=== PATIENT | male | born 1945 | race Caucasian/White ===

== ENCOUNTER 2020-08-18 04:57 | Observation (INO) ==
--- NOTE | 2020-07-22 15:04 | PAT Medication Instructions ---
Medication Instructions Date of Service July 22, 2020 Home Medications B-complex with vitamin C [Vitamin B and C] 1 tab PO QPM Vitamin B6 100 mg PO QPM amlodipine 5 mg PO QAM aspirin [Aspir-81] 81 mg PO QAM finasteride 5 mg PO HS gabapentin 600 mg PO TID hydrochlorothiazide 12.5 mg PO BID insulin aspart U-100 [Novolog U-100 Insulin aspart] 30 unit SUBCUT TIDM insulin glargine 52 unit SUBCUT TID losartan 50 mg PO BID multivitamin 1 tab PO QAM naproxen sodium 220 mg PO BID PRN omeprazole 20 mg PO QAM saw palmetto 900 mg PO HS simvastatin 40 mg PO QAM terazosin 10 mg PO BID ASK your surgeon for instructions naproxen sodium 220 mg PO BID PRN STOP taking 2 weeks before surgery saw palmetto 900 mg PO HS DO NOT take the morning of surgery gabapentin 600 mg PO TID hydrochlorothiazide 12.5 mg PO BID insulin aspart U-100 [Novolog U-100 Insulin aspart] 30 unit SUBCUT TIDM losartan 50 mg PO BID multivitamin 1 tab PO QAM Take morning of surgery With a small sip of water, OTHERWISE NOTHING TO EAT OR DRINK AFTER MIDNIGHT: amlodipine 5 mg PO QAM aspirin [Aspir-81] 81 mg PO QAM omeprazole 20 mg PO QAM simvastatin 40 mg PO QAM terazosin 10 mg PO BID Take evening before surgery B-complex with vitamin C [Vitamin B and C] 1 tab PO QPM Vitamin B6 100 mg PO QPM finasteride 5 mg PO HS gabapentin 600 mg PO TID hydrochlorothiazide 12.5 mg PO BID insulin aspart U-100 [Novolog U-100 Insulin aspart] 30 unit SUBCUT TIDM insulin glargine 52 unit SUBCUT TID losartan 50 mg PO BID terazosin 10 mg PO BID Insulin Dependent Diabetic Patients * Test your blood sugar the morning of surgery * If Blood Sugar is GREATER THAN 150, take HALF of your regular dose of: insulin glargine 52 unit SUBCUT TID -- TAKE 26 UNITS * If Blood Sugar is LESS THAN 150, DO NOT TAKE ANY: insulin glargine 52 unit SUBCUT TID Other Notes If you have any questions please call us at [phone] or [phone] or [phone] or [phone]
--- NOTE | 2020-07-23 10:46 | Anesthesiology Consultation ---
Date of Service July 23, 2020 Assessment & Plan (1) Encounter for pre-operative examination: - Per assessment on 07/23: Travel screen- Lives in [facility]/retired. Uses PPE. No known COVID-19 positive contacts or current COVID-19 related symptoms. Patient is having initial vaccine done 07/28 (second vaccine will be after surgery). Surgeon arranging preop COVID testing. Awaiting results. - Cardiology office visit (06/23/20): "Pt remains active.. stable MENDEZ.. Limited by right knee pain and may be having surgery.He has mild chronic edema.. 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 In the presence of this And has chronic RBBB, recommend stopping the beta janet and adding amlodipine 5 mg daily.. If he needs knee s urgery in the near future, he is at acceptable risk on his aspirin since he does remain active (lisseth delatorre) and asymptomatic." Follow-up 1 year recommended. - ASA instructions: patient to remain on ASA perioperatively per surgeon/cardiology Chart Review Chart Review: Acceptable Risk for Surgery (pending surgeon-ordered PCP clearance) and Patient seen in Pre Admission Testing Teaching & Discussion Pre-Anesthesia Teaching/Discussion Notes: Instructed NPO after midnight before surgery,except medications with 15 cc of water. Medication instructions provided according to the PAT guidelines. History Surgery Operation Date: 08/18/20 07:00 Proposed Procedures p Left Total Knee Arthroplasty - Chris Boyce DO Height/Weight Height: 5 ft 8 in Weight: 134.1 kg Allergies Allergy/AdvReac Type Severity Reaction Status Date / Time No Known Allergies Allergy Verified 07/09/20 10:26 Medications Home Medications Medication Instructions Recorded Confirmed Last Taken B-complex with vitamin C [Vitamin 1 tab PO QPM 07/09/20 07/09/20 Unknown B and C] Vitamin B6 100 mg PO QPM 07/09/20 07/09/20 Unknown amlodipine 5 mg PO QAM 07/09/20 07/09/20 Unknown aspirin [Aspir-81] 81 mg PO QAM 07/09/20 07/09/20 Unknown finasteride 5 mg PO HS 07/09/20 07/09/20 Unknown gabapentin 600 mg PO TID 07/09/20 07/09/20 Unknown hydrochlorothiazide 12.5 mg PO BID 07/09/20 07/09/20 Unknown insulin aspart U-100 [Novolog 30 unit SUBCUT TIDM 07/09/20 07/09/20 Unknown U-100 Insulin aspart] insulin glargine 52 unit SUBCUT TID 07/09/20 07/09/20 Unknown losartan 50 mg PO BID 07/09/20 07/09/20 Unknown multivitamin 1 tab PO QAM 07/09/20 07/09/20 Unknown naproxen sodium 220 mg PO BID PRN 07/09/20 07/09/20 Unknown omeprazole 20 mg PO QAM 07/09/20 07/09/20 Unknown saw palmetto 900 mg PO HS 07/09/20 07/09/20 Unknown simvastatin 40 mg PO QAM 07/09/20 07/09/20 Unknown terazosin 10 mg PO BID 07/09/20 07/09/20 Unknown Past Medical History Medical History CAD (coronary artery disease) stents x2 (2013) Diabetes mellitus, type 2 IDDM History of kidney injury remote hx KYM (2016), was on dialysis 1-2 months > resolved/kidney function improved/discharged from nephrology care/PCP now monitoring Hyperlipidemia Hypertension Morbid obesity Myocardial Infarction 2013 Sleep apnea CPAP Exercise / Class Metabolic Activity III < 4 Walking/Shop/Light housework (uses cane) Past Surgical History Surgical History History of cardiac cath stents x2 (2013) History of open reduction and internal fixation (ORIF) procedure left ankle History of open reduction and internal fixation (ORIF) procedure left clavicle History of total knee replacement right Past Anesthesia History No Hx of Anesthesia Complications and No Family Hx of Anesthesia Complications History of PONV No Hx of PONV and No Hx of Motion Sickness Social History Smoking Status: Never smoker tobacco type: smokeless tobacco Do You Dip or Chew Tobacco: Yes (1 can/2 weeks- advsed NPO AM DOS) Hx Alcohol Use: Yes Alcohol type: hard liquor Alcohol Intake Frequency Comment: rare Hx Substance Use: No Review of Systems Patient denies chest pain, shortness of breath, fever, chills, reflux, cough, wheezing, palpitations. Physical Exam Vital Signs VITALS BP 95/60 > 103/64 P 74 TEMP 97.8 SP02 93%RA RESP 16 PHYSICAL Full neck and c-spine range of motion. Full TMJ range of motion. TMD 4 finger breaths Mallampati Score 4 Dentition: partial on upper Lungs: clear throughout to auscultation Cardiac: regular rate and rhythm, no murmurs noted Spine: normal Carotid arteries: negative bruit Extremities: no edema Thick neck Testing Laboratory Results 07/23/20 11:11 07/23/20 11:11 PT 10.4 Seconds (9.0-12.0) 07/23/20 11:11 INR 1.0 (0.9-1.1) 07/23/20 11:11 APTT 31.0 Seconds (21.0-31.0) 07/23/20 11:11 Hemoglobin A1c 7.6 % (4.5-5.6) H 07/23/20 11:11 Urine Color Yellow 07/23/20 Unknown Urine Appearance Clear (Clear) 07/23/20 Unknown Urine pH 6.0 (4.5-7.5) 07/23/20 Unknown Ur Specific [place] 1.020 (1.000-1.030) 07/23/20 Unknown Urine Protein Negative (Negative) 07/23/20 Unknown Urine Glucose (UA) Negative (Negative) 07/23/20 Unknown Urine Ketones Negative (Negative) 07/23/20 Unknown Urine Nitrite Negative (Negative) 07/23/20 Unknown Ur Leukocyte Esterase Negative (Negative) 07/23/20 Unknown Blood Type O Positive 07/23/20 11:11 Antibody Screen NEGATIVE 07/23/20 11:11 07/23/20 GFR 44.1 *Preop testing to be forwarded to PCP for continuity of care* Electrocardiogram Date: 06/23/20 Sinus bradycardia with first-degree AV block at 53 bpm. Right bundle branch block. Possible inferior infarct (Cited on or before 06/11/2019 per branch lending manager review). Chest X-Ray Date: 07/23/20 FINDINGS: Lung volumes are normal. Bilateral pleural densities are symmetric and likely reflect extrapleural fat. There is no consolidation or evidence for pulmonary edema. Opacity at the right cardiophrenic angle is noted. This could reflect epicardial fat. Note is made of moderate cardiomegaly. IMPRESSION: No acute cardiopulmonary findings. Moderate cardiomegaly.
--- NOTE | 2020-07-23 12:06 | XRay Report ---
XR chest Pre-admission PA/Lat CLINICAL HISTORY: Preoperative evaluation. COMPARISON STUDY: No previous studies for comparison. FINDINGS: Lung volumes are normal. Bilateral pleural densities are symmetric and likely reflect extra pleural fat. There is no consolidation or evidence for pulmonary edema. Opacity at the right cardioph renic angle is noted. This could reflect epicardial fat. Note is made of moderate cardiomegaly. IMPRESSION: 1. No acute cardiopulmonary findings. 2. Moderate cardiomegaly. ACT 112: Negative or not required by law. Electronically signed by: Milo Ng M.D. 07/23/2020 12:04 PM
[2020-07-23 12:30] LABS: Basophils # (auto) 0.03 K/uL (0-0.2); Basophils % (auto) 0.3 %; Eosinophils # (auto) 0.08 K/uL (0-0.5); Eosinophils % (auto) 0.8 %; Hematocrit (blood only) 40.3 % (42-52); Hemoglobin 13.5 g/dL (14.0-18.0); Immature Granulocytes # (auto) 0.02 K/uL (0.00-0.02); Immature Granulocytes % (auto) 0.2 %; Lymphocytes % (auto) 14.4 %; Mean Corpuscular Hemoglobin 28.7 pg (25-34); Mean Corpuscular Hgb Conc 33.5 g/dL (32-36); Mean Corpuscular Volume 85.7 fL (80-100); Mean Platelet Volume 11.8 fL (7.4-10.4); Monocytes # (auto) 0.64 K/uL (0.11-0.59); Monocytes % (auto) 6.2 %; Neutrophils # (auto) 8.12 K/uL (1.4-6.5); Neutrophils % (auto) 78.1 %; Platelet Count 200 K/uL (130-400); RDW Coefficient of Variation 14.5 % (11.5-14.5); RDW Standard Deviation 45.6 fL (36.4-46.3); White Blood Count 10.39 K/uL (4.8-10.8)
[2020-07-23 12:31] LABS: Appearance Urine Clear (Clear); Bilirubin Urine Negative (Negative); Blood Urine Negative (Negative); Color Urine Yellow; Glucose Urine UA Negative (Negative); Ketones Urine Negative (Negative); Leukocyte Esterase Urine Negative (Negative); Nitrite Urine Negative (Negative); Protein Urine Negative (Negative); Urobilinogen Urine Negative (Negative)
[2020-07-23 12:34] LABS: Estimated Average Glucose 171 mg/dl; Hemoglobin A1C 7.6 % (4.5-5.6)
[2020-07-23 12:37] LABS: Albumin Level 3.5 gm/dl (3.4-5.0); BUN Creatinine Ratio 12.3 (10-20); Calcium 8.9 mg/dl (8.5-10.1); Creatinine Clr Calc Pharmacy 57.2 ml/min; Est GFR (African American) 51.1; Est GFR (Non-African American) 44.1; Potassium 3.6 mmol/L (3.5-5.1)
[2020-07-23 12:46] LABS: Partial Thromboplastin Ratio 1.2; Prothrombin Time 10.4 Seconds (9.0-12.0)
--- NOTE | 2020-08-17 08:48 | History & Physical Report ---
Date of Service August 18, 2020 Assessment & Plan (1) Degenerative joint disease of left knee: I have indicated the patient for left total knee replacement. The risks, benefits and complications of surgery were explained to the patient which include but not limited to infection, acute blood loss, DVT/PE, injury to nerves, vessels, bone, soft tissue, arthrofibrosis, chronic pain, failure of the prosthesis, knee dislocation, leg length discrepancy, need for additional surgery, cardiac and pulmonary events and . The patient wished to proceed with surgery and informed consent was obtained at this time. We will plan for 81mg ASA BID post-operatively for DVT prophylaxis. Upon discharge the patient will be discharged home with home health services. Appropriate clearances by PCP and cardiology were obtained. History of Present Illness Chief Complaint: Left knee pain/DJD Primary Care Provider: Huma Bee The patient is a 74 year old male who presents with complaints of severe left knee pain and DJD. The patient has failed outpatient conservative treatments to this point which included NSAIDS, IA corticosteroid injection and a home exercise/walking program. The patient's pain and limited function have progressed to the point where they severely hinder their activities of daily living and they no longer tolerate exercise programs. They are requesting to proceed with total knee replacement surgery. Allergies Allergy/AdvReac Type Severity Reaction Status Date / Time No Known Allergies Allergy Verified 08/18/20 05:30 Home Medications Medication Instructions Recorded Confirmed Type B-complex with vitamin C [Vitamin 1 tab PO QPM 07/09/20 08/18/20 History B and C] Vitamin B6 100 mg PO QPM 07/09/20 08/18/20 History amlodipine 5 mg PO QAM 07/09/20 08/18/20 History aspirin [Aspir-81] 81 mg PO QAM 07/09/20 08/18/20 History finasteride 5 mg PO HS 07/09/20 08/18/20 History gabapentin 600 mg PO TID 07/09/20 08/18/20 History hydrochlorothiazide 12.5 mg PO BID 07/09/20 08/18/20 History insulin aspart U-100 [Novolog 30 unit SUBCUT TIDM 07/09/20 08/18/20 History U-100 Insulin aspart] insulin glargine 52 unit SUBCUT TID 07/09/20 08/18/20 History losartan 50 mg PO BID 07/09/20 08/18/20 History multivitamin 1 tab PO QAM 07/09/20 08/18/20 History naproxen sodium 220 mg PO BID PRN 07/09/20 08/18/20 History omeprazole 20 mg PO QAM 07/09/20 08/18/20 History saw palmetto 900 mg PO HS 07/09/20 08/18/20 History simvastatin 40 mg PO QAM 07/09/20 08/18/20 History terazosin 10 mg PO BID 07/09/20 08/18/20 History Past Med/Surg History Medical History CAD (coronary artery disease) stents x2 (2013) Diabetes mellitus, type 2 IDDM History of kidney injury remote hx KYM (2016), was on dialysis 1-2 months > resolved/kidney function improved/discharged from nephrology care/PCP now monitoring Hyperlipidemia Hypertension Morbid obesity Myocardial Infarction 2014 Sleep apnea CPAP Surgical History History of cardiac cath stents x2 (2013) History of open reduction and internal fixation (ORIF) procedure left ankle History of open reduction and internal fixation (ORIF) procedure left clavicle History of total knee replacement right Social History Smoking Status: Never smoker Second Hand Exposure: No; Do You Dip or Chew Tobacco: Yes (1 can/2 weeks- advsed NPO AM DOS); Hx Alcohol Use: Yes Alcohol type: hard liquor Hx Substance Use: No Preferred Language: Irish Communication Ability: Effective Channel Machine Operator Required: No Beliefs That Will Affect Care: None Current Living Situation: Alone Other Information That Helps Us Care for You: No Feels Safe at Home: Yes Safety Concerns: Feels Safe At This Time Assistive Devices: Brace/Splint/Immobilizer, Cane, CPAP, Denture - Upper and Hearing Aid - Bilateral Review of Systems Review of Systems: All systems reviewed & are unremarkable except as noted in HPI & below Constitutional: as per Subjective / HPI Physical Exam Physical Exam: LLE NVSI +EHL/FHL/TA/GS SILT grossly, +2 DP pulse, compartments soft NT, limited painful ROM, 8-110 degrees of flexion, + creptius Constitutional: WD/WN, vitals as above Eyes: PERRL, conjunctivae normal, anicteric sclerae ENMT: external ear and nose normal, oropharynx normal Neck: trachea midline, no thyromegaly Respiratory: normal respiratory effort, lungs clear to auscultation Cardiovascular: RRR, no murmur, no edema Gastrointestinal (Abdomen): normal bowel sounds, soft, nontender, no hepatosplenomegaly Musculoskeletal: no cyanosis or clubbing, extremities motor strength 5/5 Skin: no rashes, warm and dry Neurologic: patellar DTR's 2+ bilat, sensation intact Psychiatric: A+Ox3, euthymic affect Lymphatic: no cervical or axillary lymphadenopathy Results & Data Results & Data ([facility]) Diagnostic Findings Multiple views of the knee demonstrates severe tricompartmental DJD with complete loss of the medial and PF joint space. +osteophytes, +sclerosis, +subchondral cysts. Pre Admission Testing Addendum Laboratory Results 07/23/20 11:11 07/23/20 11:11 PT 10.4 Seconds (9.0-12.0) 07/23/20 11:11 INR 1.0 (0.9-1.1) 07/23/20 11:11 APTT 31.0 Seconds (21.0-31.0) 07/23/20 11:11 Hemoglobin A1c 7.6 % (4.5-5.6) H 07/23/20 11:11 Urine Color Yellow 07/23/20 Unknown Urine Appearance Clear (Clear) 07/23/20 Unknown Urine pH 6.0 (4.5-7.5) 07/23/20 Unknown Ur Specific [place] 1.020 (1.000-1.030) 07/23/20 Unknown Urine Protein Negative (Negative) 07/23/20 Unknown Urine Glucose (UA) Negative (Negative) 07/23/20 Unknown Urine Ketones Negative (Negative) 07/23/20 Unknown Urine Nitrite Negative (Negative) 07/23/20 Unknown Ur Leukocyte Esterase Negative (Negative) 07/23/20 Unknown Blood Type O Positive 07/23/20 11:11 Antibody Screen NEGATIVE 07/23/20 11:11
[~2020-08-18 04:57] MED LIST: MISSING PHYSICIAN SIGNATURE ON ORDER SCH
[2020-08-18] MEDS ORDERED: TRANEXAMIC ACID / 0.7% NACL 1000MG/100ML BAG IV ONE (05:21)
[2020-08-18] MEDS ORDERED: CeleBREX 200 MG CAP ONE (05:22)
[2020-08-18] MEDS ORDERED: dexAMETHasone 4 MG TAB PO ONE (05:22)
[2020-08-18] MEDS ORDERED: FAMOTIDINE 20 MG TAB ONE (05:22)
[2020-08-18] MEDS ORDERED: GABAPENTIN 300 MG CAP ONE (05:22)
[2020-08-18] MEDS ORDERED: METOCLOPRAMIDE HCL 10 MG TABLET ONE (05:22)
[2020-08-18] MEDS ORDERED: SCOPOLAMINE 1 MG TDSY TD ONE (05:23)
[2020-08-18] MEDS ORDERED: ACETAMINOPHEN 500 MG TAB ONE (05:23)
[2020-08-18] MEDS ORDERED: ceFAZolin 3000MG/72.5 ML BAG IV ONE (05:23)
[2020-08-18] MEDS ORDERED: CeleBREX 200 MG CAP PO SCH (06:00)
[2020-08-18] MEDS ORDERED: ROPIVACAINE 0.5% HCL/PF 150 MG, BUPIVACAINE 0.75% MPF 20 ML, EPINEPHrine 30MG/30ML (OR ... INFIL SCH (06:00)
[2020-08-18] MEDS ORDERED: Scopolamine 1 MG TDSY TD SCH (06:00)
[2020-08-18] MEDS ORDERED: TRANEXAMIC ACID 1,000 MG **IV Intra-op IV SCH (06:00)
[2020-08-18] MEDS ORDERED: ACETAMINOPHEN 500 MG TAB PO SCH (06:00)
[2020-08-18] MEDS ORDERED: LR 500ML BOLUS, THEN 15ML/HR IV SCH (06:00)
[2020-08-18] MEDS ORDERED: FAMOTIDINE 20 MG TAB PO SCH (06:00)
[2020-08-18] MEDS ORDERED: dexAMETHasone 4 MG TAB PO SCH (06:00)
[2020-08-18] MEDS ORDERED: TRANEXAMIC ACID / 0.7% NACL 1,000 MG/100 ML BAG IV SCH (06:00)
[2020-08-18] MEDS ORDERED: METOCLOPRAMIDE HCL 10 MG TABLET PO SCH (06:00)
[2020-08-18] MEDS ORDERED: GABAPENTIN 300 MG CAP PO SCH (06:00)
[2020-08-18] MEDS ORDERED: ePHEDrine sulfate 50 MG/ML AMP IV PRN (06:32)
[2020-08-18] MEDS ORDERED: ATROPINE SULFATE 0.1 MG/ML 10ML SYR IV PRN (06:32)
[2020-08-18] MEDS ORDERED: fentaNYL citrate 100 MCG/2 ML VIAL IV PRN (06:32)
[2020-08-18] MEDS ORDERED: ONDANSETRON INJ 2 MG/ML 2 ML VIAL IV PRN ×2 (06:32→10:06)
[2020-08-18] MEDS ORDERED: BUPIVACAINE 0.5 % 5 MG/1 ML PF 10ML VIAL ONE (06:40)
[2020-08-18] MEDS ORDERED: BUPIVACAINE 0.25% 30 ML VIAL ONE (06:40)
[2020-08-18] MEDS ORDERED: PROPOFOL IV EMULSION 10 MG/ML 20 ML VIAL IV ONE ×3 (06:41→09:16)
[2020-08-18] MEDS ORDERED: MIDAZOLAM HCL 1 MG/ML 2ML VIAL ONE ×2 (06:41→06:42)
--- NOTE | 2020-08-18 06:42 | History & Physical Bridge Note ---
Date of Service August 18, 2020 History & Physical Bridge Note I have examined the patient, reviewed the History & Physical and in the interval since the performance of the History & Physical I have noted the following changes of clinical significance: no changes noted
[2020-08-18] MEDS ORDERED: BACITRACIN INJ 50,000 UNIT VIAL ONE (06:50)
[2020-08-18] MEDS ORDERED: ORTHO JOINT ANESTHETIC ONE (06:51)
[2020-08-18] MEDS ORDERED: GLYCOPYRROLATE 0.2 MG/ML VIAL ONE (07:45)
[2020-08-18] MEDS ORDERED: ePHEDrine sulfate 50 MG/ML SYR ONE (08:15)
--- NOTE | 2020-08-18 08:58 | Post Operative Brief Note ---
Immediate Post Op Note v1 Date of Surgery August 18, 2020 Pre & Post Diagnosis Operation Date: 08/18/20 07:00 Pre-Op Diagnosis: Left Knee Degenerative Joint Disease Post-Op Diagnosis: Left Knee Degenerative Joint Disease I identified the patient and participated in the time-out.: Yes Procedure Operation Date: 08/18/20 07:00 Actual Procedures p Left Total Knee Arthroplasty(Left) - Chris Boyce DO Surgeon Chris Boyce DO Editorial Director Valentín Jimenez Estimated Blood Loss 85 Findings Consistent with Post-Op Diagnosis Fluids see anesthesia report Specimens Proximal tibia and distal femur bone fragments Drains Hemovac Drain Anesthesia Type Spinal MAC Complications none Overlapping Procedure I was present for: the critical portions of procedure. I was immediately available: during the entire case. Back up surgeon: was not required during procedure.
--- NOTE | 2020-08-18 09:00 | Operative Report ---
Post Operative Report Pre & Post Diagnosis Operation Date: 08/18/20 07:00 Pre-Op Diagnosis: Left Knee Degenerative Joint Disease Post-Op Diagnosis: Left Knee Degenerative Joint Disease I identified the patient and participated in the time-out.: Yes Procedure Operation Date: 08/18/20 07:00 Actual Procedures p Left Total Knee Arthroplasty(Left) - Chris Boyce DO Surgeon Chris Boyce, Rocket Test Fire Worker Valentín Jimenez Estimated Blood Loss 85 Findings Consistent with Post-Op Diagnosis Fluids See anesthesia report Specimens Proximal tibia and distal femur bone fragment Anesthesia Type Spinal MAC Complications none Disposition Disposition: Recovery Room Indications The patient is a 71-year-old male presents with long history of severe left knee tricompartmental DJD and failed outpatient conservative treatments including NSAIDs, bracing, injections and home walking/exercise program. The patient's symptoms have progressed to the point where it has been difficult to perform normal activities of daily living. I have indicated the patient for a left total knee arthroplasty, the risks and benefits and complications of the procedure include but are not limited to infection bleeding damage to bone, nerves, vessels, surrounding soft tissue, blood clots, loss of function, leg length discrepancy, dislocation, failure of the components, need for additional surgery and . The patient wished to proceed with surgery at this time and informed consent was obtained. Appropriate clearances were obtained. Description of Procedure COMPONENTS USED: Brittaney persona knee system: Femur size 8 standard, Tibia size G, Tibial articulating surface 10 PS, Patella 34 oval Following induction of spinal anesthesia, a tourniquet was applied to the proximal aspect of the thigh and the patient's left leg was prepped and draped in the usual sterile manner. A timeout was performed, patient identified and site shila confirmed. Appropriate pre-operative IV antibiotics were given. The limb was exsanguinated with an Esmarch bandage and tourniquet was inflated to 300 mmHg. A longitudinal midline incision was made over the anterior knee. Subcutaneous tissue was sharply dissected down to fascia. Electrocautery was used for hemostasis. Next a parapatellar arthrotomy was performed. Patella was everted and the knee was flexed. A Bustillos retractor was used to expose the synovium above on the anterior aspect of the femur and removed down to bone. Next, the anterior fat pad was removed to aid in visualization. The medial face of the tibia was cleared of soft tissue first with a Bovie and a whalen elevator. This tissue was retracted posteriorly using a blunt Hohmann. Next, the extra-medullary tibial cutting guide was placed to the anterior aspect of the tibia. The tibia resection level was set taking 2mm from the defective tibial condyle. Resection depth was once again confirmed with luna wing. The medial and lateral collateral ligament was protected with two Hohmann retractors. The tibia guide was removed and proximal tibial bone fragment removed utilizing straight osteotome, electrocautery and Teetee. Next, the distal femur intramedullary canal was accessed utilizing the step drill. The intramedullary distal femur cutting guide was placed into the canal and pinned into place. The distal femur was cut on the 5 degree setting. Next the cutting guide was removed and the femur was sized. Care was taken to ensure appropriate stereotype molder all rotation and 3 degree holes were drilled. A size 8 4-in-1 cutting block was placed on the distal end of the femur and secured into place with two short headed screws. Two bent Hohmann retractors were placed to protect the medial and lateral collateral ligaments. The oscillating saw was used to cut anterior, posterior, anterior chamfer and posterior chamfer. The four and one cutting block was removed and bone fragments excised. Laminar piercing machine operator was placed laterally and the ACL and PCL were removed followed by the medial meniscus and posterior medial osteophytes. Aquamantys was utilized for any posterior medial bleeders and Orthomix injected into the posterior medial capsule. A laminar piercing machine operator was then placed in the medial compartment and the lateral meniscus and posterior osteophytes were removed. Aquamantys was utilized for any posterior lateral bleeders and Orthomix injected into the posterior lateral capsule. Next, drop james and spacer block were placed with the leg in flexion and extension to assess alignment and flexion/extension gaps. Next, the proximal tibia was assessed and two bent Hohmans were placed medial and lateral to aid in visualization. The appropriate tibia size and rotation was selected and a size G tibial plate was pinned into place with appropriate rotation. Preparation of the tibia was completed utilizing the matching tibial drill and broach. I then turned my attention back to the distal femur in a trial femoral component was impacted into place. Appropriate femoral width was assessed and selected. Next the femur PS box cut guide was placed and cut made with the reciprocal saw and the PS box provisional placed. A trial size 10 PS tibia articular tray was placed and varus-valgus balance assessed in 0 degrees of extension and 30, 60 and 90 degrees of flexion. A final tibial articular surface size 10 PS was chosen. Assess was gained to the patella and caliper utilized to measure width. The patella reamer was utilized and remaining bone removed with oscillating saw. A size 34 oval patella button was selected and the patella pegs drilled. Trial patella button was placed and tracking was assessed. The knee was found to be well balanced, well aligned with excellent patella tracking. The trials were removed and final components were obtained and assembled. The knee was irrigated copiously with sterile saline solution mixed with bacitracin. Access to the proximal tibia was once again obtained utilizing to the Hohmans and the proximal tibia and distal femur were dried with lap sponges. The final components were cemented into place and all excess cement was removed. A trial tibial articular surface was placed while cemented hardened. Knee stability was once again assessed and the final component inserted. A Betadine soak was performed. After 3 minutes, the knee was once more irrigated with copious sterile saline solution with bacitracin. The knee was injected with the remaining Orthomix which includes a combination of Ropivicaine 0.5% 150mg, Bupivicaine 0.5%/Epinephrine 1:200,000 30ml, Toradol 30mg, Dexamethasone 4mg, Ketamine 10mg, Clonidine 100mcg and NSS 30ml solution. The capsulotomy was closed with #1 Vicryl followed by subcutaneous closure with 2-0 Vicryl suture and skin was closed with shashank. A sterile dry dressing was applied which included Silverlon, web roll and Ruddy wrap. Tourniquet was deflated at 98 minute s. The patient tolerated the procedure well and was taken to the PACU in stable condition. Due to the complex nature of the procedure, the entire surgery was performed with the operational assistance of Valentín Jimenez PA-C. The endodontic assistant, under direct supervision, was involved in the actual performance of all aspects of the surgical procedure including patient positioning, hemostasis, tissue retraction, instrument management and wound closure. I attest to the content of the Intraoperative Record and any orders documented therein. Any exceptions are noted below.
--- NOTE | 2020-08-18 09:47 | XRay Report ---
LEFT KNEE 2 VIEWS History: Left total knee arthroplasty. Degenerative arthritis. Postop. FINDINGS: The patient is status post a left total knee arthroplasty. The hardware is intact. No fract ure or dislocation. Skin shashank are in place. IMPRESSION: Left total knee arthroplasty. No evidence for hardware complication. ACT 112: Negative or not required by law. Electronically signed by: Wesley Ruth M.D. 08/18/2020 9:46 AM
[2020-08-18] MEDS ORDERED: oxyCODONE HCL IR 5 MG TAB (IMMEDIATE RELEASE) PO PRN (10:06)
[2020-08-18] MEDS ORDERED: ceFAZolin 2000MG 2,000 MG/15 ML SYR IV SCH (10:06)
[2020-08-18] MEDS ORDERED: HYDROmorphone INJ 0.5 MG/0.5 ML SYR IV PRN (10:06)
[2020-08-18] MEDS ORDERED: diphenhydrAMINE Capsule 25 MG CAP PO PRN (10:06)
[2020-08-18] MEDS ORDERED: NALOXONE HCL 0.4 MG/1 ML VIAL/CARP IV PRN (10:06)
[2020-08-18] MEDS ORDERED: MAGNESIUM HYDROXIDE SUSP 30 ML UDC PO PRN (10:06)
[2020-08-18] MEDS ORDERED: METOCLOPRAMIDE HCL INJ 5 MG/ML 2 ML VIAL IV PRN (10:06)
[2020-08-18] MEDS ORDERED: bisacodyL 10 MG SUPP PR PRN (10:06)
[2020-08-18] MEDS ORDERED: PHARMACY GLYCEMIC MGMT CONSULT PRN (10:22)
[2020-08-18] MEDS ORDERED: DEXTROSE 50% 50 ML SYRINGE IV PRN (11:00)
[2020-08-18] MEDS ORDERED: GLUCOSE 40% GEL 15 GM TUBE PO PRN (11:00)
[2020-08-18] MEDS ORDERED: GLUCAGON FOR INJ 1 MG VIAL IM PRN (11:00)
[2020-08-18] MEDS ORDERED: GLUCOSE 10 TABS/TUBE PO PRN (11:00)
[2020-08-18] MEDS ORDERED: CARBOHYDRATES FOR HYPOGLYCEMIA PO PRN (11:00)
[2020-08-18] MEDS ORDERED: INSULIN GLARGINE SOLOSTAR 100 UNITS/ML 3 ML PEN SC ONE ×2 (11:00→11:15)
[2020-08-18] MEDS: SODIUM CHLORIDE 0.9% 1000ML 1,000 ML IV SCH ×2 (11:20→20:54)
[2020-08-18] MEDS: INSULIN ASPART 100 UNITS/ML 3 ML PEN SC SCH ×4 (11:45→20:49)
[2020-08-18] MEDS: TERAZOSIN HCL 5 MG CAP PO SCH ×2 (12:06→20:10)
[2020-08-18] MEDS: SIMVASTATIN 40 MG TAB PO SCH (12:06)
[2020-08-18] MEDS: amLODIPine BESYLATE 5 MG TAB PO SCH (12:07)
[2020-08-18] MEDS: PANTOprazole 40 MG TAB PO SCH (12:07)
[2020-08-18] MEDS: hydroCHLOROthiazide 25 MG TAB PO SCH ×2 (12:07→16:37)
[2020-08-18] MEDS: LOSARTAN POTASSIUM 50 MG TAB PO SCH ×2 (12:08→20:10)
[2020-08-18] MEDS: GABAPENTIN 600 MG TAB PO SCH ×3 (12:08→20:09)
[2020-08-18] MEDS: ACETAMINOPHEN 500 MG TAB PO SCH ×2 (13:37→20:50)
--- NOTE | 2020-08-18 14:33 | Anesthesiology Progress Note ---
Date of Service August 18, 2020 Anesthesia Post Procedure Vital Signs Vital Signs: Temp Pulse Pulse Resp BP Pulse Ox 08/18/20 13:04 36.4 C L 60 16 171/68 H 94 08/18/20 12:05 36.4 C L 54 L 16 155/65 H 96 08/18/20 11:00 36.6 C 55 L 18 144/74 H 94 08/18/20 10:35 36.3 C L 51 L 18 135/66 96 08/18/20 10:05 36.4 C L 52 L 20 132/70 93 08/18/20 09:55 36.3 C L 50 L 17 147/64 H 94 08/18/20 09:45 55 L 21 144/67 H 94 08/18/20 09:35 56 L 20 137/63 93 08/18/20 09:26 36.5 C 55 L 20 133/65 93 08/18/20 06:25 165/75 H 08/18/20 05:26 36.6 C 57 L 20 191/82 H 96 Pain Intensity Left Knee: Pain Intensity: 10 Transfer of Care Handoff Completed per policy Notes Mental Status: alert / awake / arousable and participated in evaluation Patient Amnestic to Procedure: Yes Nausea / Vomiting: adequately controlled Pain: adequately controlled Airway Patency, RR, SpO2: stable & adequate BP & HR: stable & adequate Hydration State: stable & adequate Neuraxial Anesthesia: was administered and sensory block is resolving Anesthetic Complications: no major complications apparent and Pt Satisfied with anesthetic care
--- NOTE | 2020-08-18 14:36 | Pharmacy Report ---
Pharmacy Glycemic Short Note 2 - Date of Service August 18, 2020 - Glycemic Short BSG Results (Last 24 hours): 08/18/20 08/18/20 08/18/20 05:26 09:29 10:35 POC Glucose 149 H 160 H 185 H 08/18/20 12:03 POC Glucose 281 H OUTPATIENT ANTIDIABETIC REGIMEN: * Lantus 52 units BID + Novolog 30 units TIDM * HbA1C = 7.6% (07/23/20) ASSESSMENT: * Patient admitted for L knee surgery. Patient received dexamethasone 8 mg PO preop and dexamethasone 4 mg topically. * Patient did not take Lantus this morning. * Start Lantus 70 units x 1 (home dose reduced by 20% plus 0.4 units/kg of insulin for steroid hyperglycemia) then scale for this evening with reductions of home insulin of 20-30%. Patient does report hypoglycemia at home when he "doesn't eat properly" so concern that dietary influences could be at play. Since home regimen is split 50/50 will empirically reduce Lantus by at least 20%. * Start weight-based stress of 3 Novolog due to steroid use. PLAN FOR INPATIENT GLYCEMIC CONTROL: * Basal insulin * Lantus 70 units SQ x 1 then 30-40 units SQ BID (Lantus 30 units if BSG < 140 mg/dL; Lantus 35 units if BSG 140-180 mg/dL; Lantus 40 units if BSG > 180 mg/dL) * Bolus insulin * NovoLog per scale ACHS or Q6hrs while NPO * Goal Range: Low 110 mg/dL - High 140 mg/dL * Correction Factor: 10 mg/dL/unit * Nutritional / Prandial insulin per carb ratio of 1 unit per 3 grams CHO consumed PLAN FOR DISCHARGE: * Patient's HbA1C is slightly elevated at 7.6%. * Recommend working with provider to check blood sugars and tailor insulin to when blood sugars run slightly higher.
[2020-08-18] MEDS: Scopolamine CHECK PATCH PLACEMENT SCH (16:36)
[2020-08-18] MEDS: ceFAZolin 3,000 MG in DEXTROSE 5% 50 ML IV SCH ×2 (16:42→17:51)
--- NOTE | 2020-08-18 19:02 | Orthopedic Progress Note ---
Date of Service August 18, 2020 Assessment & Plan (1) Degenerative joint disease of left knee: s/p L TKA -ancef x 24 -DVT ppx: SCDs, TEDs, 81mg ASA BID -WBAT LLE -PT/OT -PO XR demonstrates a well aligned well fixed prosthesis without fracture/dislocation -am labs -DC planning Admission and Anticipated Discharge Date Admission Date: August 18, 2020 Subjective Post Operative Progress Note Patient seen sitting in chair at bedside, comfortable, denies complaints, pain well controlled, no acute issues. Review of Systems Review of Systems: All systems reviewed & are unremarkable except as noted in HPI & below Constitutional: as per Subjective / HPI Physical Exam Physical Exam: LLE NVSI +EHL/FHL/TA/GS SILT grossly, +2 DP pulse, compartments soft NT, dressing cdi. Constitutional: WD/WN, vitals as above Results & Data ([facility]) Vital Signs (Past 12 Hours) Vital Signs Temp Pulse Pulse Resp BP Pulse Ox 08/18/20 17:00 73 18 169/68 H 92 08/18/20 13:04 36.4 C L 60 16 171/68 H 94 08/18/20 12:05 36.4 C L 54 L 16 155/65 H 96 08/18/20 11:00 36.6 C 55 L 18 144/74 H 94 08/18/20 10:35 36.3 C L 51 L 18 135/66 96 08/18/20 10:05 36.4 C L 52 L 20 132/70 93 08/18/20 09:55 36.3 C L 50 L 17 147/64 H 94 08/18/20 09:45 55 L 21 144/67 H 94 08/18/20 09:35 56 L 20 137/63 93 08/18/20 09:26 36.5 C 55 L 20 133/65 93
[2020-08-18] MEDS: DOCUSATE SODIUM 100 MG CAP PO SCH (20:10)
[2020-08-18] MEDS: INSULIN GLARGINE SOLOSTAR 100 UNITS/ML 3 ML PEN SC SCH (20:49)
[2020-08-18] MEDS ORDERED: SENNA 8.6 MG TAB PO SCH (21:00)
[2020-08-18] MEDS ORDERED: FINASTERIDE 5 MG TAB PO SCH (21:00)
[2020-08-19] MEDS: ceFAZolin 3,000 MG in DEXTROSE 5% 50 ML IV SCH (00:01)
[2020-08-19] MEDS: Scopolamine CHECK PATCH PLACEMENT SCH ×2 (00:01→08:35)
[2020-08-19] MEDS: INSULIN ASPART 100 UNITS/ML 3 ML PEN SC SCH ×5 (00:02→12:45)
[2020-08-19] MEDS: ACETAMINOPHEN 500 MG TAB PO SCH ×2 (05:10→12:56)
[2020-08-19 06:31] LABS: Hematocrit (blood only) 35.6 % (42-52); Hemoglobin 11.8 g/dL (14.0-18.0); Mean Corpuscular Hemoglobin 28.1 pg (25-34); Mean Corpuscular Hgb Conc 33.1 g/dL (32-36); Mean Corpuscular Volume 84.8 fL (80-100); Mean Platelet Volume 11.3 fL (7.4-10.4); Platelet Count 208 K/uL (130-400); RDW Coefficient of Variation 14.3 % (11.5-14.5); RDW Standard Deviation 44.2 fL (36.4-46.3); White Blood Count 19.49 K/uL (4.8-10.8)
[2020-08-19 07:02] LABS: Calcium 8.7 mg/dl (8.5-10.1); Est GFR (African American) 53.2; Est GFR (Non-African American) 45.9; Potassium 3.9 mmol/L (3.5-5.1)
--- NOTE | 2020-08-19 07:25 | Orthopedic Progress Note ---
Date of Service August 19, 2020 Assessment & Plan (1) Degenerative joint disease of left knee: s/p L TKA POD#1 -ancef x 24 -DVT ppx: SCDs, TEDs, 81mg ASA BID -WBAT LLE -PT/OT -PO XR demonstrates a well aligned well fixed prosthesis without fracture/dislocation -am labs - as above, hgb 11.8, Cr 1.49, at baseline pre op labs -DC planning - home with Admission and Anticipated Discharge Date Admission Date: August 18, 2020 Subjective Post Operative Progress Note Patient seen sitting in chair at bedside, comfortable, denies complaints, pain well controlled, no acute issues. Denies F/C/N/V/SOB/CP. Review of Systems Review of Systems: All systems reviewed & are unremarkable except as noted in HPI & below Constitutional: as per Subjective / HPI Physical Exam Physical Exam: LLE NVSI +EHL/FHL/TA/GS SILT grossly, +2 DP pulse, compartments soft NT, dressing cdi. Constitutional: WD/WN, vitals as above Results & Data ([facility]) Vital Signs (Past 12 Hours) Vital Signs Temp Pulse Resp BP BP Pulse Ox 08/19/20 07:10 36.5 C 57 L 18 152/78 H 93 08/19/20 02:13 36.7 C 55 L 18 129/67 94 08/18/20 21:00 36.7 C 61 18 156/62 H 96 Laboratory Results 08/19/20 08/19/20 08/19/20 Range/Units 05:49 05:49 04:12 WBC 19.49 H (4.8-10.8) K/uL RBC 4.20 L (4.7-6.1) M/uL Hgb 11.8 L (14.0-18.0) g/dL Hct 35.6 L (42-52) % MCV 84.8 (80-100) fL MCH 28.1 (25-34) pg MCHC 33.1 (32-36) g/dL RDW Std Deviation 44.2 (36.4-46.3) fL RDW Coeff of Karl 14.3 (11.5-14.5) % Plt Count 208 (130-400) K/uL MPV 11.3 H (7.4-10.4) fL Sodium 138 (136-145) mmol/L Potassium 3.9 (3.5-5.1) mmol/L Chloride 106 (98-107) mmol/L Carbon Dioxide 26 (21-32) mmol/L Anion Gap 6.0 (3-11) BUN 22 H (7-18) mg/dl Creatinine 1.49 H (0.6-1.4) mg/dl Est Cr Clr Drug Dosing 59.0 ml/min Est GFR ( Amer) 53.2 Est GFR (Non-Af Amer) 45.9 BUN/Creatinine Ratio 15.0 (10-20) Glucose 142 H (70-99) mg/dl POC Glucose 156 H (70-99) mg/dl Calcium 8.7 (8.5-10.1) mg/dl 08/18/20 08/18/20 08/18/20 Range/Units 23:56 20:25 20:19 WBC (4.8-10.8) K/uL RBC (4.7-6.1) M/uL Hgb (14.0-18.0) g/dL Hct (42-52) % MCV (80-100) fL MCH (25-34) pg MCHC (32-36) g/dL RDW Std Deviation (36.4-46.3) fL RDW Coeff of Karl (11.5-14.5) % Plt Count (130-400) K/uL MPV (7.4-10.4) fL Sodium (136-145) mmol/L Potassium (3.5-5.1) mmol/L Chloride (98-107) mmol/L Carbon Dioxide (21-32) mmol/L Anion Gap (3-11) BUN (7-18) mg/dl Creatinine (0.6-1.4) mg/dl Est Cr Clr Drug Dosing ml/min Est GFR ( Amer) Est GFR (Non-Af Amer) BUN/Creatinine Ratio (10-20) Glucose (70-99) mg/dl POC Glucose 169 H 309 H* 305 H* (70-99) mg/dl Calcium (8.5-10.1) mg/dl 08/18/20 08/18/20 08/18/20 Range/Units 16:53 12:03 10:35 WBC (4.8-10.8) K/uL RBC (4.7-6.1) M/uL Hgb (14.0-18.0) g/dL Hct (42-52) % MCV (80-100) fL MCH (25-34) pg MCHC (32-36) g/dL RDW Std Deviation (36.4-46.3) fL RDW Coeff of Karl (11.5-14.5) % Plt Count (130-400) K/uL MPV (7.4-10.4) fL Sodium (136-145) mmol/L Potassium (3.5-5.1) mmol/L Chloride (98-107) mmol/L Carbon Dioxide (21-32) mmol/L Anion Gap (3-11) BUN (7-18) mg/dl Creatinine (0.6-1.4) mg/dl Est Cr Clr Drug Dosing ml/min Est GFR ( Amer) Est GFR (Non-Af Amer) BUN/Creatinine Ratio (10-20) Glucose (70-99) mg/dl POC Glucose 230 H 281 H 185 H (70-99) mg/dl Calcium (8.5-10.1) mg/dl 08/18/20 Range/Units 09:29 WBC (4.8-10.8) K/uL RBC (4.7-6.1) M/uL Hgb (14.0-18.0) g/dL Hct (42-52) % MCV (80-100) fL MCH (25-34) pg MCHC (32-36) g/dL RDW Std Deviation (36.4-46.3) fL RDW Coeff of Karl (11.5-14.5) % Plt Count (130-400) K/uL MPV (7.4-10.4) fL Sodium (136-145) mmol/L Potassium (3.5-5.1) mmol/L Chloride (98-107) mmol/L Carbon Dioxide (21-32) mmol/L Anion Gap (3-11) BUN (7-18) mg/dl Creatinine (0.6-1.4) mg/dl Est Cr Clr Drug Dosing ml/min Est GFR ( Amer) Est GFR (Non-Af Amer) BUN/Creatinine Ratio (10-20) Glucose (70-99) mg/dl POC Glucose 160 H (70-99) mg/dl Calcium (8.5-10.1) mg/dl
[2020-08-19] MEDS: DOCUSATE SODIUM 100 MG CAP PO SCH (08:35)
[2020-08-19] MEDS: LOSARTAN POTASSIUM 50 MG TAB PO SCH (08:36)
[2020-08-19] MEDS: hydroCHLOROthiazide 25 MG TAB PO SCH (08:37)
[2020-08-19] MEDS: TERAZOSIN HCL 5 MG CAP PO SCH (08:37)
[2020-08-19] MEDS: amLODIPine BESYLATE 5 MG TAB PO SCH (08:38)
[2020-08-19] MEDS: GABAPENTIN 600 MG TAB PO SCH ×2 (08:38→12:56)
[2020-08-19] MEDS: PANTOprazole 40 MG TAB PO SCH (08:38)
[2020-08-19] MEDS: SIMVASTATIN 40 MG TAB PO SCH (08:39)
[2020-08-19] MEDS: INSULIN GLARGINE SOLOSTAR 100 UNITS/ML 3 ML PEN SC SCH (08:43)
[2020-08-19] MEDS ORDERED: ASPIRIN 81 MG ECTAB PO SCH (09:00)
[2020-08-19] MEDS ORDERED: MULTIVITAMIN TAB PO SCH (09:00)
--- NOTE | 2020-08-19 12:40 | Pharmacy Report ---
Pharmacy Glycemic Short Note 2 - Date of Service August 19, 2020 - Glycemic Short BSG Results (Last 24 hours): 08/18/20 08/18/20 08/18/20 16:53 20:19 20:25 Glucose POC Glucose 230 H 305 H* 309 H* 08/18/20 08/19/20 08/19/20 23:56 04:12 05:49 Glucose 142 H POC Glucose 169 H 156 H 08/19/20 12:14 Glucose POC Glucose 200 H OUTPATIENT ANTIDIABETIC REGIMEN: * Lantus 52 units BID + Novolog 30 units TIDM * HbA1C = 7.6% (07/23/20) ASSESSMENT: 08/19/20 * Patient received 200 units of insulin yesterday (110 units of basal and 90 units of bolus). * BSGs postoperatively were elevated. Lunch was elevated because it was taken only 30 mins after breakfast insulin given (therefore falsely elevated). Bedtime was elevated due to insufficient carbohydrate coverage. * Fasting BSG was 134 mg/dL indicating that 110 units of basal insulin was sufficient with steroids. Have scale planned for patient to receive slightly less basal tonight since no more steroids given. Aim for around 90 units of basal today. * For Novolog, tightened CF/CR for breakfast. With increase of 70 points between breakfast and lunch, will tighten CR again. 08/18/20 * Patient admitted for L knee surgery. Patient received dexamethasone 8 mg PO preop and dexamethasone 4 mg topically. * Patient did not take Lantus this morning. * Start Lantus 70 units x 1 (home dose reduced by 20% plus 0.4 units/kg of insulin for steroid hyperglycemia) then scale for this evening with reductions of home insulin of 20-30%. Patient does report hypoglycemia at home when he "doesn't eat properly" so concern that dietary influences could be at play. Since home regimen is split 50/50 will empirically reduce Lantus by at least 20%. * Start weight-based stress of 3 Novolog due to steroid use. PLAN FOR INPATIENT GLYCEMIC CONTROL: * Basal insulin * Lantus 40-50 units SQ BID (Lantus 40 units if BSG < 140 mg/dL; Lantus 50 units if BSG 140 mg/dL or greater) * Bolus insulin * NovoLog per scale ACHS or Q6hrs while NPO * Goal Range: Low 110 mg/dL - High 140 mg/dL * Correction Factor: 8 mg/dL/unit * Nutritional / Prandial insulin per carb ratio of 1 unit per 1.5 grams CHO consumed PLAN FOR DISCHARGE: * Patient's HbA1C is slightly elevated at 7.6%. * Recommend working with provider to check blood sugars and tailor insulin to when blood sugars run slightly higher.
[2020-08-19] MEDS ORDERED: INSULIN GLARGINE SOLOSTAR 100 UNITS/ML 3 ML PEN SC ONE (12:45)
--- NOTE | 2020-08-19 18:11 | Discharge Summary ---
Date of Service August 19, 2020 Admission HPI Per Admitting Provider The patient is a 74 year old male who presents with complaints of severe left knee pain and DJD. The patient has failed outpatient conservative treatments to this point which included NSAIDS, IA corticosteroid injection and a home exercise/walking program. The patient's pain and limited function have progressed to the point where they severely hinder their activities of daily living and they no longer tolerate exercise programs. They are requesting to proceed with total knee replacement surgery. Principal Diagnosis Left total knee replacement -Left knee DJD Discharge Exam LLE NVSI +EHL/FHL/TA/GS SILT grossly, +2 DP pulse, compartments soft NT, dressing cdi. Constitutional WD/WN, vitals as above Discharge Data Allergies Allergy/AdvReac Type Severity Reaction Status Date / Time No Known Allergies Allergy Verified 08/18/20 05:30 Consultations 08/18/20 10:06 Consult Case Management - Discharge Planning Routine Procedures Performed Operation Date: 08/18/20 07:00 Actual Procedures p Left Total Knee Arthroplasty(Left) - Chris Boyce DO Ordered Studies 08/18/20 05:00 US - OR guided needle placemen Routine Hospital Course (1) Degenerative joint disease of left knee: The patient is a 74 -year-old male who presents with long standing history of severe left knee DJD and failed outpatient conservative treatments. The patient's symptoms have progressed to the point where it has been difficult to perform even normal activities of daily living. I indicated the patient for a left total knee arthroplasty, the risks, benefits and complications of the procedure include but not limited to infection, bleeding, damage to bone, nerves, vessels, surrounding soft tissue, may develop blood clots, loss of function, leg length discrepancy, dislocation, failure of the components, loosening of the components, the need for additional surgery and . The patient wished to proceed with surgery at this time and informed consent was obtained. Hospital Course: On 08/18/20 the patient was taken to the operating room, adequate anesthesia administered and underwent a left total knee arthroplasty. The patient tolerated the procedure well and was taken to the PACU in stable condition. Post-operatively the patient was started on a DVT ppx medication and given appropriate IV antibiotics. Consults were placed to physical therapy, occupational therapy and case management. On POD#1, the patient did well overnight and their pain was well controlled. Labs were drawn and the Hgb was 11.8. The patient progressed well with PT. Dressings were changed at this time and the incision was clean, dry and intact. The patients hospital stay was relatively uneventful and they were deemed stable by the orthopedic team and consultants to be discharged home with HH on 08/19/20. Discharge Instructions: Upon discharge the patient may weight bear as tolerates through their operative extremity. They were instructed to keep the incision clean and dry at all times. The patient may shower but should not submerge the incision, avoid bathing, pools and hot tubs. The patient was given a script for pain medication and should take as instructed. The patient was given a script for DVT ppx 81mg ASA BID and should take as directed. The patient was instructed to not drive or travel for long distances until cleared to do so. If the patient develops any symptoms of fevers, chills, nausea, vomiting, increased redness, swelling, pain or drainage from the surgical site, they should notify the office and/or proceed to the nearest emergency room. The patient should follow up in 10-14 days after surgery for their routine post-operative follow-up appointment and should call the office, to confirm the date and time. s/p L TKA POD#1 -ancef x 24 -DVT ppx: SCDs, TEDs, 81mg ASA BID -WBAT LLE -PT/OT -PO XR demonstrates a well aligned well fixed prosthesis without fracture/di slocation -am labs - as above, hgb 11.8, Cr 1.49, at baseline pre op labs -DC planning - home with Total Time Total Time Spent Total Time Spent (In Minutes): 30 Discharge Plan Discharge Items Patient Disposition: Home - Home Health Services Reason For Visit: Left Knee Degenerative Joint Disease Discharge Diagnosis: Left total knee replacement -Left knee DJD Condition on Discharge: Good Activity: Per Instructions section Lifting: Wait until after follow-up appointment Bathing: Keep incision dry Bathing Comment: No bathing, pools or hot tubs. Sexual Activity: Wait until after follow-up appointment Exercise/Sports: Wait until after follow-up appointment Driving/Machine Use: No driving. Weightbearing: Full weightbearing Non-emergency contact: Primary Care Provider and Surgeon Call non-emergency contact if: you have any medication questions, your symptoms worsen, your pain is not controlled, your pain is worsening, your pain is unusual for you, your pain is concerning for you, you have a fever, your temperature is above 101, your wound has increased redness, your wound has increased drainage and your wound pain has increased Follow-up/Referrals: Huma Bee PA-C [Primary Care Provider] - Diet: Carb Consistent or DM2 Addtl Attending Provider Instructions: ACTIVITY RECOMMENDATIONS: SELF CARE INSTRUCTIONS AFTER TOTAL KNEE REPLACEMENT A. You may need to continue a physical therapy program after discharge from the hospital. There are several options available to you. Your doctor will assist you in selecting the best one for you. 1. An out-patient facility 2 to 3 times a week for therapy or home therapy. 2. Continue working on all exercises taught to you in the hospital. Your goals should be to increase bending of your knee to 90 degrees and beyond and to fully straighten your knee. B. You may progress at your own pace from walking with a walker or crutches to a cane; then to no assistive devices. C. Make walking a part of your daily routine. Be up as much as comfortable with rest periods throughout the day. Rest with leg elevation is very important. Use the ice wrap frequently for the first 3-4 weeks. D. There are no restrictions on activities. You may ride in a car, shop, participate in stacker and all social activities. E. Wear the long elastic stockings (MARIANA hose) 20 hours a day for 2 weeks after surgery. They can be removed several times a day for laundering and for a bath. F. You may shower, no tub baths until cleared by your doctor. SPECIAL CARE INSTRUCTIONS: VERY IMPORTANT TO READ AND REVIEW A. There are a few signs you need to watch for after you are home. Call [facility] if you notice any of the followin. Increased severe knee pain. Some pain is expected especially when you exercise. 2. Increased swelling in your leg or knee; pain or swelling of the calf muscle in either lower leg. 3. Any fluid drainage from the incision. 4. Shortness of breath or chest pain. B. Please call [facility] at if you have any concerns or questions about your operation or recovery. The doctor or his nurse will return your call promptly. C. You must take antibiotics before dental work, bladder, bowel or other surgery. Your doctor will provide you with a permanent care to carry describing this precaution. IMPORTANT: * REMEMBER TO TAKE ASPIRIN, 81 MG, TWICE DAILY FOR 4 WEEKS UNLESS OTHERWISE DIRECTED. THIS IS YOUR BLOOD THINNER. * HIGH RISK PATIENTS MAY BE PRESCRIBED A STRONGER BLOOD THINNER. THIS WILL BE PROVIDED AT DISCHARGE. * CALL IF INCREASED PAIN, REDNESS, DRAINAGE OR FEVER GREATER THAT 101. * WEAR MARIANA HOSE 20 HOURS PER DAY FOR 2 WEEKS. * YOU MAY HAVE A LARGE BAND-AID LIKE DRESSING (SILVERON). THIS WILL REMAIN ON YOUR INCISION FOR 7 DAYS, THEN CAN BE REMOVED. IF INCISION IS LEAKING THROUGH DRESSING, CALL THE OFFICE . FOLLOW UP VISIT: If appointment is not already scheduled: Please call [facility] to make a follow-up appointment for 2 weeks after your surgery at . Pending Studies at Discharge: No Stand-Alone Forms: My [employer], Opioid Pain Management, Smoking Cessation Medications and DC Order Prescriptions: New aspirin 81 mg Tablet,Delayed Release (Dr/Ec) 81 mg PO BID Qty: 56 RF: 0 acetaminophen 500 mg Tablet 1,000 mg PO Q8 PRN (Reason: pain/fevers) Qty: 90 RF: 0 oxycodone 5 mg Tablet 5 mg PO Q6H MDD 4 PRN (Reason: pain) Qty: 30 RF: 0 sennosides [Senokot] 8.6 mg Tablet 17.2 mg PO HS PRN (Reason: constipation) Qty: 28 RF: 0 Continued multivitamin Tablet 1 tab PO QAM RF: 0 losartan 50 mg Tablet 50 mg PO BID RF: 0 simvastatin 80 mg Tablet 40 mg PO QAM RF: 0 insulin aspart U-100 [Novolog U-100 Insulin aspart] 100 unit/mL Solution 30 unit SUBCUT TIDM RF: 0 omeprazole 20 mg Capsule,Delayed Release(Dr/Ec) 20 mg PO QAM RF: 0 hydrochlorothiazide 25 mg Tablet 12.5 mg PO BID RF: 0 terazosin 10 mg Capsule 10 mg PO BID RF: 0 finasteride 5 mg Tablet 5 mg PO HS RF: 0 B-complex with vitamin C Tablet 1 tab PO QPM RF: 0 saw palmetto 450 mg Capsule 900 mg PO HS RF: 0 gabapentin 300 mg Capsule 600 mg PO TID RF: 0 insulin glargine 100 unit/mL Solution 52 unit SUBCUT TID RF: 0 Vitamin B6 100 mg PO QPM RF: 0 amlodipine 5 mg Tablet 5 mg PO QAM RF: 0 Discontinued aspirin [Aspir-81] 81 mg Tablet,Delayed Release (Dr/Ec) 81 mg PO QAM RF: 0 naproxen sodium 220 mg Capsule 220 mg PO BID PRN (Reason: Pain) RF: 0 Discharge Orders: Discharge Order (Routine); Ordered 08/19/20 Ordered By: Chris Peter/Other Patient Handouts: DVT Post Op Prevention, Managing Type 2 Diabetes Admission Data Admit Date/Time: 08/18/20 09:31 Attending Provider: Chris Boyce Admit Provider: Chris Boyce Primary Care Provider: Huma Bee Other Providers: [facility] ; [facility] Other Interventions: Discharge Summary Assessment (RN) Last Done: 08/19/20 12:50
== END 2020-08-19 13:44 | disposition home health service (06) ==
LOC: 3E 04:57 → ASU 04:57